=== PATIENT | male | born 1965 | race Caucasian/White ===

== ENCOUNTER 2019-03-10 08:15 | Emergency (ER) | payer BC, OTHER, SELFPAY ==
[2019-03-10] MEDS ORDERED: MORPHINE 4 MG/ML SYR ONE (08:27)
[2019-03-10] MEDS ORDERED: ONDANSETRON 4 MG/2 ML VIAL ONE (08:27)
[2019-03-10] MEDS ORDERED: TAMSULOSIN 0.4 MG SR CAP ONE (08:27)
[2019-03-10] MEDS ORDERED: MAGNESIUM SULFATE 1 gm IVPB 1 GM/100 ML BAG IV ONE (08:28)
[2019-03-10 08:36] LABS: Urine Blood 2+ (NEG); Urine Glucose NEGATIVE (NEG); Urine Protein NEGATIVE (NEG); Urine pH 5.5 (5.0-7.0)
[2019-03-10 08:36] LABS: Absolute Lymphocytes (CBC) 2.9 K/uL (0.7-4.9); Basophils % 0.8 % (0-1.3); Lymphocytes % 37.4 % (15.3-44.8); MPV 8.1 fL (7.6-11.3)
[2019-03-10 08:54] LABS: Albumin 4.1 g/dL (3.4-5.0); Bilirubin Direct 0.1 mg/dL (0-0.2); Bilirubin Total 0.6 mg/dL (0.2-1.0); Potassium 3.8 mmol/L (3.5-5.1); Protein, Total 7.5 g/dL (6.4-8.2)
--- NOTE | 2019-03-10 09:02 | RAD REPORT ---
EXAM DESCRIPTION: CT - Stone Protocol - 03/10/2019 8:43 am CLINICAL HISTORY: Right flank pain COMPARISON: None. TECHNIQUE: Axial 3 mm thick images were obtained without oral or IV contrast. The [id number] span s the entirety of the system including uppermost abdomen and lung bases. All CT scans are performed using dose optimization technique as appropriate and may include automated exposure control or mA/KV adjustment according to patient size. FINDINGS: Mild right-sided hydronephrosis present. No obstructing or nonobstructing calculi. No left -sided hydronephrosis. Urinary bladder is fully contracted. No bladder calculus seen. Attenuation of fluid within the right renal pelvis is relatively high at 21 Hounsfield units. Hydronephrosis without obstructing calculus can be seen with a recently passed stone. Blood or inflammatory debris within t he collecting system can be a source for obstruction. A small mass lesion is possible. No suspicious renal masses. Isodense masses and pyelonephritis are not excluded on a stone protocol CT scan. No significant adrenal finding. Diffuse fatty infiltration is present in the liver. No focal liver lesion on noncontrast imaging. Spl een and pancreas show no suspicious findings. No gallbladder or biliary tree abnormality identified. No suspicious bowel findings. No mass or bulky lymphadenopathy. Fat extends into the first 2- 3 cm of the left inguinal canal. No f ree air, free fluid or inflammatory stranding. No significant bony abnormality. IMPRESSION: Mild right-sided hydronephrosis down to the UVJ without an obstructing calculus. Attenua tion of the fluid within the right collecting system is greater than typically seen. Findings could reflect a recently passed stone. Small mass in the distal ureter is possible. Blood or inflammatory debris in the collecting system also possible cause of obstruction. Isodense masses and pyelonephritis are not excluded on stone protocol technique. Fatty infiltration of the liver.
--- NOTE | 2019-03-10 10:35 | ER ---
Nurse's Notes [facility] Name: Everton Espinal Age: 53 yrs Sex: Male : 1965 Arrival Date: 03/10/2019 Time: 08:19 Bed 14 Private MD: Diagnosis: Hydronephrosis;Recently passed calculus of ureter Presentation: 03/10 08:11 Presenting complaint: EMS states: Pt. is 53 yr. c./o lower abdominal pain that radiates rb1 to the right low back. Pain 10/10 and is intermittent. No medical history and NKDA. Transition of care: patient was not received from another setting of care. Onset of symptoms was March 10, 2019 at 07:30. Risk Assessment: Do you want to hurt yourself or someone else? Patient reports no desire to harm self or others. Initial Sepsis Screen: Does the patient meet any 2 criteria? No. Patient's initial sepsis screen is negative. Does the patient have a suspected source of infection? No. Patient's initial sepsis screen is negative. Care prior to arrival: None. 08:11 Method Of Arrival: EMS: [facility] [employer] rb1 08:11 Acuity: THEL[facility] 3 rb1 Triage Assessment: 08:11 General: Appears uncomfortable, Behavior is agitated, anxious. Pain: Complains of pain rb1 in abdomen Pain radiates to right flank Pain currently is 10 out of 10 on a pain scale. Pain began 30 min ago. Pt. reports pain is intermittent. Neuro: Level of Consciousness is awake, alert, obeys commands, Oriented to person, place, time, situation. Cardiovascular: Capillary refill < 3 seconds is brisk in bilateral fingers. Respiratory: Airway is patent Respiratory effort is even, unlabored, Respiratory pattern is regular, symmetrical. GI: Reports having an urge to have a bowel movement, but cannot go when he gets to the bathroom. Derm: Skin is pink, warm \T\ dry. Musculoskeletal: Range of motion: intact in all extremities. Historical: - Allergies: 08:11 No Known Allergies; rb1 - PMHx: 08:11 None; rb1 - Immunization history:: Adult Immunizations up to date. - Family history:: not pertinent. - Ebola Screening: : Patient negative for fever greater than or equal to 101.5 degrees Fahrenheit, and additional compatible Ebola Virus Disease symptoms. - Social history:: Smoking status: Patient/guardian denies using tobacco. - Hospitalizations: : No recent hospitalization is reported. Screenin:11 Abuse screen: Denies threats or abuse. Nutritional screening: No deficits noted. rb1 Tuberculosis screening: No symptoms or risk factors identified. Fall Risk None identified. Assessment: 08:11 General: See triage assessment. rb1 08:53 Reassessment: Patient appears in no apparent distress at this time. Patient and/or rb1 family updated on plan of care and expected duration. Pain level reassessed. Patient is alert, oriented x 3, equal unlabored respirations, skin warm/dry/pink. 09:08 Reassessment: Dr. Ely is at the pt. bedside. rb1 09:33 Reassessment: Patient appears in no apparent distress at this time. Patient and/or rb1 family updated on plan of care and expected duration. Pain level reassessed. Patient is alert, oriented x 3, equal unlabored respirations, skin warm/dry/pink. Pain 5/10. 10:32 Reassessment: Patient appears in no apparent distress at this time. Patient and/or rb1 family updated on plan of care and expected duration. Pain level reassessed. Patient is alert, oriented x 3, equal unlabored respirations, skin warm/dry/pink. 11:02 Reassessment: Patient is alert, oriented x 3, equal unlabored respirations, skin aa5 warm/dry/pink. Vital Signs: 08:11 Weight 113.4 kg (R); Height 5 ft. 10 in. (177.80 cm) (R); Pain 10/10; rb1 08:52 BP 160 / 90; Pulse 57; Resp 22; Temp 98.7(TE); Pulse Ox 99% on R/A; Pain 10/10; rb1 10:34 BP 146 / 89; Pulse 55; Resp 19; Pulse Ox 98% on R/A; Pain 4/10; rb1 08:11 Body Mass Index 35.87 (113.40 kg, 177.80 cm) rb1 08:11 Pt was unable to sit still long enough for us to get a BP. He is anxious at this time. rb1 ED Course: 08:11 Arm band placed on right wrist. rb1 08:11 Patient has correct armband on for positive identification. Bed in low position. Call rb1 light in reach. Side rails up X 1. Pulse ox on. NIBP on. 08:18 Fabricio Ely MD is Attending Physician. rn 08:19 Patient arrived in ED. rb1 08:21 Triage completed. rb1 08:23 Sharon Gonzalez, RN is Primary Nurse. rb1 08:32 Initial lab(s) drawn, by nd, sent to lab. Urine collected: clean catch specimen, clear, jb1 donna colored. Inserted saline lock: 22 gauge in right antecubital area, using aseptic technique. Blood collected. 08:44 CT Stone Protocol In Process Unspecified. EDMS 09:39 EKG done, by biotechnologist. reviewed by Fabricio Ely MD. at1 11:02 No provider procedures requiring assistance completed. IV discontinued, intact, aa5 bleeding controlled, No redness/swelling at site. Pressure dressing applied. Administered Medications: 08:25 Drug: Flomax 0.4 mg Route: PO; rb1 08:50 Follow up: Response: No adverse reaction rb1 08:33 Drug: morphine 4 mg Route: IVP; Site: right antecubital; rb1 08:50 Follow up: Response: No adverse reaction; Pain is unchanged, physician notified rb1 08:33 Drug: Zofran 4 mg Route: IVP; Site: right antecubital; rb1 08:50 Follow up: Response: No adverse reaction rb1 08:34 Drug: Magnesium Sulfate 1 grams Route: IVPB; Infused Over: 1 hrs; Site: right rb1 antecubital; 09:15 Drug: NS 0.9% 1000 ml Route: IV; Rate: 1000 ml; Site: right antecubital; rb1 Outcome: 10:34 Discharge ordered by . rn 11:02 Discharged to home ambulatory, with family. aa5 11:02 Condition: stable 11:02 Discharge instructions given to patient, Instructed on discharge instructions, follow up and referral plans. medication usage, Demonstrated understanding of instructions, follow-up care, medications, Prescriptions given X 2. 11:04 Patient left the ED. aa5 11:20 Patient left the ED. rb1 Signatures: Dispatcher [employer] EDMS Frederic Hylton jb1 Fabricio Ely MD MD rn Calderon, Audri, RN RN aa5 Bia Del Castillo, teacher of the sight impaired EKG Tat1 Sharon Gonzalez, RN RN rb1 Corrections: (The following items were deleted from the chart) 09:21 08:11 113.4 kg Reported; Height 5 ft. 10 in. Reported; BMI: 35.8; Pain 03/19; rb1 rb1
--- NOTE | 2019-03-10 10:35 | EDPHYS ---
Physician Documentation [facility] Name: Everton Espinal Age: 53 yrs Sex: Male : 1965 Arrival Date: 03/10/2019 Time: 08:19 Bed 14 Private MD: ED Physician Fabricio Ely HPI: 03/10 08:20 This 53 yrs old Male presents to ER via Unassigned with complaints of rn Possible Kidney Stone. 08:20 The patient complains of pain in the right mid back. The pain radiates to the abdomen. rn Onset: The symptoms/episode began/occurred 30 minute(s) ago. Modifying factors: The symptoms are alleviated by nothing. the symptoms are aggravated by nothing. Severity of pain: At its worst the pain was moderate in the emergency department the pain is unchanged. The patient has not experienced similar symptoms in the past. The patient has not recently seen a physician. Sudden onset right flank pain, radiates around to abdomen, + nausea, declined pain meds, + dysuria. . Historical: - Allergies: 08:11 No Known Allergies; rb1 - PMHx: 08:11 None; rb1 - Immunization history:: Adult Immunizations up to date. - Family history:: not pertinent. - Ebola Screening: : Patient negative for fever greater than or equal to 101.5 degrees Fahrenheit, and additional compatible Ebola Virus Disease symptoms. - Social history:: Smoking status: Patient/guardian denies using tobacco. - Hospitalizations: : No recent hospitalization is reported. ROS: 08:20 Constitutional: Negative for fever, chills, and weight loss, Eyes: Negative for injury, rn pain, redness, and discharge, Cardiovascular: Negative for chest pain, palpitations, and edema, Respiratory: Negative for shortness of breath, cough, wheezing, and pleuritic chest pain, Abdomen/GI: Negative for vomiting, diarrhea, and constipation, Back: + right flank pain MS/Extremity: Negative for injury and deformity, Skin: Negative for injury, rash, and discoloration, Neuro: Negative for headache, weakness, numbness, tingling, and seizure. Exam: 08:20 Constitutional: This is a well developed, well nourished patient who is awake, alert, rn anesthetist, pacing, appears uncomfortable Head/Face: Normocephalic, atraumatic. Cardiovascular: Regular rate and rhythm. No pulse deficits. Respiratory: No increased work of breathing, no retractions or nasal flaring. Abdomen/GI: soft, non-tender Back: No spinal tenderness. No costovertebral tenderness. Full range of motion. MS/ Extremity: Pulses equal, no cyanosis. Neurovascular intact. Full, normal range of motion. Equal circumference. Neuro: Awake and alert, GCS 15, oriented to person, place, time, and situation. Cranial nerves II-XII grossly intact. Motor strength 5/5 in all extremities. Sensory grossly intact. Cerebellar exam normal. Normal gait. 14:18 ECG was reviewed by the Attending Physician. rn Vital Signs: 08:11 Weight 113.4 kg (R); Height 5 ft. 10 in. (177.80 cm) (R); Pain 10/10; rb1 08:52 BP 160 / 90; Pulse 57; Resp 22; Temp 98.7(TE); Pulse Ox 99% on R/A; Pain 10/10; rb1 10:34 BP 146 / 89; Pulse 55; Resp 19; Pulse Ox 98% on R/A; Pain 4/10; rb1 08:11 Body Mass Index 35.87 (113.40 kg, 177.80 cm) rb1 08:11 Pt was unable to sit still long enough for us to get a BP. He is anxious at this time. rb1 MDM: 08:18 Patient medically screened. rn 10:32 Differential diagnosis: nephrolithiasis, pyelonephritis, UTI, diverticulitis, rn pancreatitis. Data reviewed: vital signs, nurses notes, lab test result(s), EKG, radiologic studies, CT scan, and as a result, I will discharge patient. Counseling: I had a detailed discussion with the patient and/or guardian regarding: the historical points, exam findings, and any diagnostic results supporting the discharge/admit diagnosis, lab results, radiology results, the need for outpatient follow up, to return to the emergency department if symptoms worsen or persist or if there are any questions or concerns that arise at home. Response to treatment: the patient's symptoms have markedly improved after treatment, and as a result, I will discharge patient. Special discussion: I discussed with the patient/guardian in detail that at this point there is no indication for admission to the hospital. It is understood, however, that if the symptoms persist or worsen the patient needs to return immediately for re-evaluation. ED course: Pt much improved, now laying down, ct negative for stone but + secondary signs of stone on right side where he has symptoms, also 2+ blood in urine. Will dc home as recently passed stone with pain meds for residual pain and lots of water. Will f/u with pcp. . 03/10 08:19 Order name: Basic Metabolic Panel; Complete Time: 08:56 rn 03/10 08:19 Order name: CBC with Diff; Complete Time: 08:56 rn 03/10 08:19 Order name: Hepatic Function; Complete Time: 08:56 rn 03/10 08:19 Order name: CT Stone Protocol; Complete Time: 09:07 rn 03/10 08:27 Order name: Urine Dipstick--Ancillary (enter results); Complete Time: 08:56 gm 03/10 08:19 Order name: IV Saline Lock; Complete Time: 08:32 rn 03/10 08:19 Order name: Labs collected and sent; Complete Time: 08:32 rn 03/10 09:13 Order name: EKG - Nurse/Tech; Complete Time: 09:32 rb1 EC:18 Rate is 45 beats/min. Rhythm is regular. QRS [place] is Normal. NE interval is normal. QRS rn interval is normal. QT interval is normal. No Q waves. T waves are Normal. No ST changes noted. Clinical impression: Sinus bradycardia. Interpreted by me. Reviewed by me. Administered Medications: 08:25 Drug: Flomax 0.4 mg Route: PO; rb1 08:50 Follow up: Response: No adverse reaction rb1 08:33 Drug: morphine 4 mg Route: IVP; Site: right antecubital; rb1 08:50 Follow up: Response: No adverse reaction; Pain is unchanged, physician notified rb1 08:33 Drug: Zofran 4 mg Route: IVP; Site: right antecubital; rb1 08:50 Follow up: Response: No adverse reaction rb1 08:34 Drug: Magnesium Sulfate 1 grams Route: IVPB; Infused Over: 1 hrs; Site: right rb1 antecubital; 09:15 Drug: NS 0.9% 1000 ml Route: IV; Rate: 1000 ml; Site: right antecubital; rb1 Disposition: 03/10/19 10:34 Discharged to Home. Impression: Hydronephrosis, Recently passed calculus of ureter. - Condition is Stable. - Discharge Instructions: Kidney Stones, Dietary Guidelines to Help Prevent Kidney Stones. - Prescriptions for Zofran ODT 4 mg Oral tablet,disintegrating - place 1 tablet by TRANSLINGUAL route every 8 hours As needed; 20 tablet. Tylenol- Codeine #3 300-30 mg Oral Tablet - take 1 tablet by ORAL route every 6 hours As needed; 20 tablet. - Medication Reconciliation Form, Thank You Letter, Antibiotic Education, Prescription Opioid Use, Work release form form. - Follow up: Private Physician; When: As needed; Reason: Recheck today's complaints, Re-evaluation by your physician. - Problem is new. - Symptoms have improved. Signatures: Dispatcher [employer] EDMS Fabricio Ely MD MD rn Analy Nunez RN RN aa5 Sharon Gonzalez RN RN rb1 Corrections: (The following items were deleted from the chart) 11:04 10:34 03/10/2019 10:34 Discharged to Home. Impression: Hydronephrosis; Recently passed aa5 calculus of ureter. Condition is Stable. Forms are Medication Reconciliation Form, Thank You Letter, Antibiotic Education, Prescription Opioid Use. Follow up: Private Physician; When: As needed; Reason: Recheck today's complaints, Re-evaluation by your physician. Problem is new. Symptoms have improved. rn 11:20 11:04 03/10/2019 10:34 Discharged to Home. Impression: Hydronephrosis; Recently passed rb1 calculus of ureter. Condition is Stable. Discharge Instructions: Kidney Stones, Dietary Guidelines to Help Prevent Kidney Stones. Prescriptions for Zofran ODT 4 mg Oral tablet,disintegrating - place 1 tablet by TRANSLINGUAL route every 8 hours As needed; 20 tablet, Tylenol-Codeine #3 300-30 mg Oral Tablet - take 1 tablet by ORAL route every 6 hours As needed; 20 tablet. and Forms are Medication Reconciliation Form, Thank You Letter, Antibiotic Education, Prescription Opioid Use. Follow up: Private Physician; When: As needed; Reason: Recheck today's complaints, Re-evaluation by your physician. Problem is new. Symptoms have improved. aa5
[2019-03-10 11:11] VITALS: TEMP 98.7
[2019-03-10 11:12] VITALS: BP 146/89; O2SAT 98
--- NOTE | 2019-03-10 12:18 | EKG ---
Test Date: 2019-03-10 Test Time: 09:31:01 [employer]: [employer] MEASUREMENT RESULTS: Intervals: Rate: 45 [place]: 174 QRSD: 102 QT: 462 QTc: 399 [place]: P: 47 [place]: 174 QRS: 59 T: 41 INTERPRETIVE STATEMENTS: Marked sinus bradycardia Abnormal ECG No previous ECG available for comparison Electronically Signed On 03-10-19 12:17:31 CDT by João Flores
== END 2019-03-10 11:20 | disposition home or self-care (01) ==
LOC: ER 08:15
DX: N13.30 Unspecified hydronephrosis (principal)
CPT/HCPCS: 93005; 85025; 80048; 36415; 80076; 81003; 76377; 74176; 96375; 96374; 99284; J3475; J2405